=== PATIENT | male | born 1935 | race Two or more races ===

== ENCOUNTER 2017-11-07 14:18 | Emergency (ER) | payer MEDICAID ==
[~2017-11-07] VITALS: Ht 157.5 cm; Wt 71.7 kg
[~2017-11-07 14:18] MED LIST: AMLO5TAB2 PO; LISI-646 PO; TRAM50TA2 PO
[2017-11-07 15:25] LABS: Basophils # (auto) 0.1 uL; Basophils % (auto) 0.7 % (0.0-2.0); Eosinophils # (auto) 0.1 uL; Hematocrit 40.1 % (41.0-53.0); Hemoglobin 13.8 g/dL (13.5-17.5); Lymphocytes # (auto) 1.5 uL; Lymphocytes % (auto) 18.6 % (10.0-50.0); Mean Corpuscular Hemoglobin 31.1 pg (28.0-32.0); Mean Corpuscular Hgb Conc. 34.4 g/dL (32.0-36.0); Mean Corpuscular Volume 90.2 fL (80.0-100.0); Monocytes % (auto) 12.5 % (0.0-12.0); Neutrophils # (auto) 5.5 uL; Neutrophils % (auto) 67.2 % (37.0-80.0); Nucleated Red Blood Cells % 0.1 %; Platelet Count (auto) 183 10^3/uL (140-450); Red Blood Cells 4.44 10^6/uL (4.5-5.90); Red Cell Distribution Width 14.1 % (11.8-14.3); White Blood Cell 8.2 10^3/uL (4.4-10.8)
[2017-11-07 15:48] LABS: Alanine Aminotransferase 31 U/L (16-61); Alkaline Phosphatase 63 U/L (45-117); Anion Gap 9 (5-15); Aspartate Aminotransferase 24 U/L (15-37); BUN/Creatinine Ratio 16.9; Bilirubin, Total 2.1 mg/dL (0.2-1.0); Blood Urea Nitrogen 15 mg/dL (7-18); Calcium 7.7 mg/dL (8.5-10.1); Carbon Dioxide 23 mmol/L (21-32); Chloride 105 mmol/L (98-107); GFR African American 105 mL/min; GFR Non-African American 87 mL/min; Glucose 101 mg/dL (74-106); Potassium 4.2 mmol/L (3.5-5.1); Sodium 137 mmol/L (136-145)
[2017-11-07 16:28] LABS: Urine Bacteria FEW /hpf (None Seen); Urine Blood 2+ /uL (Negative); Urine Specific Gravity 1.012 (1.001-1.035); Urine WBC 97 /hpf (0 - 3); Urine WBC Clumps PRESENT /hpf (None Seen)
[2017-11-07 17:02] VITALS: BP 113/54
[2017-11-07] MEDS ORDERED: cefTRIAXone SOD 1,000 MG VL IM ONE (18:00)
[2017-11-07] MEDS ORDERED: cefTRIAXone 1GM/10ml IVPUSH 10 ML IV ONE (18:21)
== END 2017-11-07 18:49 | disposition home or self-care (01) ==
LOC: ER 14:18
DX: N39.0 Urinary tract infection, site not specified (principal); N45.1 Epididymitis; I10 Essential (primary) hypertension; Z90.49 Acquired absence of other specified parts of digestive tract
CPT/HCPCS: 36415; 71045; 74176; 76870; 80053; 81001; 84484; 85025; 93005; 96372; 99285; J0696

== ENCOUNTER 2020-02-19 18:00 | Inpatient (IN) | payer MEDICAID ==
[~2020-02-19] VITALS: Ht 165.1 cm; Wt 64.0 kg
[~2020-02-19 18:00] MED LIST changes: +AMLO5TAB15 PO; -AMLO5TAB2 PO
[2020-02-19 19:19] LABS: Basophils # (auto) 0 10 ^3/uL (0-0.2); Basophils % (auto) 0.2 % (0.0-2.0); Eosinophils # (auto) 0 10 ^3/uL (0-0.8); Hematocrit 40.3 % (41.0-53.0); Hemoglobin 13.7 g/dL (13.5-17.5); Lymphocytes # (auto) 1.3 10 ^3/uL (0.4-5.4); Lymphocytes % (auto) 26.2 % (10.0-50.0); Mean Corpuscular Volume 88.3 fL (80.0-100.0); Monocytes # (auto) 0.5 10 ^3/uL (0-1.3); Neutrophils # (auto) 3.1 10 ^3/uL (1.6-8.6); Neutrophils % (auto) 62.6 % (37.0-80.0); Nucleated Red Blood Cells % 0.2 %; Platelet Count (auto) 154 10^3/uL (140-450); Red Blood Cells 4.56 10^6/uL (4.5-5.90); Red Cell Distribution Width 14.1 % (11.8-14.3)
[2020-02-19 19:26] LABS: INR 1.05 (0.9-1.15); Partial Thromboplastin Time 31.7 sec (23.0-31.2)
[2020-02-19 19:37] LABS: Potassium 3.6 mmol/L (3.5-5.1)
[2020-02-19 19:46] LABS: Albumin 2.9 g/dL (3.4-5.0); BUN/Creatinine Ratio 14.8; Bilirubin, Total 1.1 mg/dL (0.2-1.0); Calcium 7.8 mg/dL (8.5-10.1); Total Protein 6.9 g/dL (6.4-8.2)
[2020-02-20] VITALS (7 sets, daily range): BP systolic 127–162; BP diastolic 67–74
[2020-02-20] MEDS ORDERED: ONDANSETRON HCL 4 MG/2 ML VIAL IV PRN (02:00)
[2020-02-20] MEDS ORDERED: DOCUSATE SOD 100 MG CAP PO PRN (02:00)
[2020-02-20] MEDS ORDERED: NITROGLYCERIN 0.4 MG SL TAB SL PRN (02:00)
[2020-02-20] MEDS ORDERED: ACETAMINOPHEN 500 MG TAB PO PRN (02:00)
[2020-02-20] MEDS ORDERED: MORPHINE SULF INJ 2 MG/ML SYRINGE 1ML IV PRN (02:00)
[2020-02-20] MEDS ORDERED: DexAMETHasone SOD PHOS 10MG/1ML VIAL INJ IV SCH (03:00)
[2020-02-20] MEDS ORDERED: DOXYCYCLINE 100MG/250ML 250 ML IV SCH (03:00)
--- NOTE | 2020-02-20 03:52 | NUR ---
Telemetry admit from ER [facility] CHACON admitted to Telemetry unit after SBAR received. Patient oriented to ULICES PACHECO RN primary RN, unit, room, bed, and unit policies regarding patient care and visiting hours. Patient now on continuous telemetry monitoring, tele box #19 and telemetry reading on arrival to unit is SR 80bpm. Patient weighed by bedscale and encouraged to call if they need something. All questions and concerns addressed, patient verbalized understanding.
--- NOTE | 2020-02-20 04:28 | NUR ---
unable to obtain home medication list per patient he will provide medication list later on during the day. will endorse care to dayshift rn
[2020-02-20] MEDS ORDERED: INFLUENZA QUAD 2020-2021 0.5 ML SYRG IM ONE (05:00)
[2020-02-20] MEDS: ALBUTEROL SULF HFA 90MCG INH 200DOSE IN SCH ×2 (06:00→14:07)
[2020-02-20] MEDS ORDERED: SODIUM CHLOR 0.9% PF (SALINE LOCK) 10ML VIAL/SYR IV SCH (06:00)
--- NOTE | 2020-02-20 06:50 | NUR ---
Patient rounds patient resting in bed denies sob distress or pain. iv is intact and patent. bed in low position and call light within reach
--- NOTE | 2020-02-20 07:26 | NUR ---
REPORT GIVEN TO DAYSHIFT RN PATIENT DENIES SOB DISTRESS OR PAIN
[2020-02-20] MEDS ORDERED: PANTOPRAZOLE 40 MG/10 ML VIAL INJ IV SCH (10:00)
[2020-02-20] MEDS ORDERED: ASCORBIC ACID 1,000 MG TAB PO SCH (10:00)
[2020-02-20] MEDS ORDERED: MULTIPLE VITAMIN TAB PO SCH (10:00)
[2020-02-20] MEDS ORDERED: ENOXAPARIN SOD 40 MG/0.4 ML SYRINGE SC SCH (10:00)
[2020-02-20] MEDS ORDERED: BUDESONIDE (INHALATION) 180 MCG IH IN SCH (10:00)
[2020-02-20] MEDS ORDERED: ZINC SULFATE 220mg CAP or TAB PO SCH (10:00)
[2020-02-20] MEDS ORDERED: CHOLECALCIFEROL (VITD3) 2,000 UNIT CAP PO SCH (10:00)
--- NOTE | 2020-02-20 11:29 | NUR ---
Nutrition Assessment/Consult Notes Please refer to link for full assessment notes. Est Energy needs: 3406-3914 kcals (20-23 kcal/kgBW) Est Protein needs: 64-70 gms/day (1.0-1.1 gm/kgBW) Will continue to monitor and reassess prn. Addendum: 02/20/20 at [address] Amended: Links added.
[2020-02-20 11:40] LABS: Basophils # (auto) 0 10 ^3/uL (0-0.2); Basophils % (auto) 0.1 % (0.0-2.0); Eosinophils # (auto) 0 10 ^3/uL (0-0.8); Hematocrit 43.3 % (41.0-53.0); Hemoglobin 14.6 g/dL (13.5-17.5); Lymphocytes # (auto) 0.7 10 ^3/uL (0.4-5.4); Lymphocytes % (auto) 21.3 % (10.0-50.0); Mean Corpuscular Hemoglobin 29.8 pg (28.0-32.0); Mean Corpuscular Hgb Conc. 33.6 g/dL (32.0-36.0); Mean Corpuscular Volume 88.8 fL (80.0-100.0); Monocytes # (auto) 0.1 10 ^3/uL (0-1.3); Monocytes % (auto) 3.9 % (0.0-12.0); Neutrophils # (auto) 2.5 10 ^3/uL (1.6-8.6); Neutrophils % (auto) 74.7 % (37.0-80.0); Platelet Count (auto) 159 10^3/uL (140-450); Red Blood Cells 4.88 10^6/uL (4.5-5.90); Red Cell Distribution Width 14.1 % (11.8-14.3); White Blood Cell 3.4 10^3/uL (4.4-10.8)
--- NOTE | 2020-02-20 11:45 | NUR ---
Dr Chanel bedside with patient discussing plan of care
[2020-02-20 12:04] LABS: BUN/Creatinine Ratio 15.4; Calcium 8.3 mg/dL (8.5-10.1)
[2020-02-20] MEDS ORDERED: ASCO10003 PO (12:26)
[2020-02-20] MEDS ORDERED: DOXY-286 PO (12:26)
--- NOTE | 2020-02-20 13:03 | NUR ---
Dr Bain bedside with patient.
--- NOTE | 2020-02-20 15:15 | NUR ---
Discharge instructions given as ordered. Encourage to follow up with PMD as instructed. Patient to call PCP and schedule appointment as office was closed due to weekend. Phone # and address provided. All questions and concerns addressed. Patient verbalized understanding. Medication reconciliation form completed and copy given to patient. No home medications being held in Pharmacy, and no needed vaccines given, patient declined. IV removed with catheter intact and pressure dressing applied. Telemetry unit returned to ICU. Patient taken to vehicle via wheelchair with all personal belongings, accompanied by staff and family member. No distress noted at time of departure.
--- NOTE | 2020-02-23 10:27 | NUR ---
THIRD MATE WEEKEND 02/20/20 No page regarding social service for advance directive.
== END 2020-02-20 15:15 | disposition home or self-care (01) | DRG 137 ==
LOC: EDBD 18:00 → ER 18:00 → TELE 18:01 → TELE-EAST 02-20 04:19
PROVIDERS: ADMIT Nurse Practitioner Family; ATTEND Nurse Practitioner Acute Care
DX: U07.1 COVID-19 (principal); I10 Essential (primary) hypertension; J12.89 Other viral pneumonia; K21.9 Gastro-esophageal reflux disease without esophagitis; J98.11 Atelectasis
CPT/HCPCS: 36415; 71045; 80048; 80053; 82150; 83605; 83690; 83735; 84484; 85025; 85379; 85610; 85730; 87426; 93005; 94640; C9113; G0378; J1100; J3490

== ENCOUNTER 2022-02-24 13:09 | Inpatient (IN) | payer MEDICAID ==
[~2022-02-24] VITALS: Ht 167.6 cm; Wt 63.5 kg
[~2022-02-24 13:09] MED LIST changes: +AMLO-489 PO; -AMLO5TAB15 PO; +ASCO10003 PO; +DOXY-286 PO; -LISI-646 PO; +LISI20TA28 PO
[2022-02-24 15:07] LABS: Basophils # (auto) 0 10 ^3/uL (0-0.2); Basophils % (auto) 0.2 % (0.0-2.0); Eosinophils # (auto) 0 10 ^3/uL (0-0.8); Eosinophils % (auto) 0.2 % (0.0-7.0); Hematocrit 42.5 % (41.0-53.0); Hemoglobin 14.1 g/dL (13.5-17.5); Lymphocytes # (auto) 1.1 10 ^3/uL (0.4-5.4); Mean Corpuscular Hemoglobin 30.2 pg (28.0-32.0); Mean Corpuscular Hgb Conc. 33.1 g/dL (32.0-36.0); Mean Corpuscular Volume 91.4 fL (80.0-100.0); Neutrophils # (auto) 8.4 10 ^3/uL (1.6-8.6); Neutrophils % (auto) 79.6 % (37.0-80.0); Red Blood Cells 4.65 10^6/uL (4.5-5.90); Red Cell Distribution Width 14.4 % (11.8-14.3); White Blood Cell 10.5 10^3/uL (4.4-10.8)
[2022-02-24 15:55] LABS: Albumin 3.3 g/dL (3.4-5.0); BUN/Creatinine Ratio 17.7; Bilirubin, Total 1.5 mg/dL (0.2-1.0); Calcium 8.4 mg/dL (8.5-10.1); Potassium 4.9 mmol/L (3.5-5.1); Total Protein 6.7 g/dL (6.4-8.2)
[2022-02-24] MEDS ORDERED: SODIUM CHLORIDE 0.9% 1,000 ML IV SCH (19:15)
[2022-02-24] MEDS ORDERED: ACETAMINOPHEN 325 MG TAB PO PRN (19:15)
[2022-02-24] MEDS ORDERED: ASPirin 325 MG TAB PO ONE (19:15)
[2022-02-24] MEDS ORDERED: ENOXAPARIN SOD 100 MG/1 ML SYRINGE SC ONE (19:30)
[2022-02-24 21:07] LABS: Cholesterol 162 mg/dL (< 200); HDL Cholesterol 41 mg/dL (40-59); LDL Cholesterol 109 mg/dL (< 100); Triglycerides 169 mg/dL (< 150)
[2022-02-24 21:35] LABS: Urine Bacteria FEW /hpf (None Seen); Urine Blood Negative /uL (Negative); Urine Specific Gravity 1.016 (1.001-1.035); Urine WBC 1 /hpf (0 - 3)
[2022-02-24 22:08] VITALS: BP 128/55
[2022-02-24] MEDS: ATORVASTATIN 20 MG TAB PO SCH (22:11)
[2022-02-24] MEDS ORDERED: LOSA-39 PO (22:25)
[2022-02-24 22:37] VITALS: BP 128/55
[2022-02-25] VITALS (10 sets, daily range): BP systolic 90–135; BP diastolic 38–94
[2022-02-25 06:36] LABS: Basophils # (auto) 0 10 ^3/uL (0-0.2); Basophils % (auto) 0.1 % (0.0-2.0); Eosinophils # (auto) 0 10 ^3/uL (0-0.8); Hematocrit 43.1 % (41.0-53.0); Hemoglobin 14.6 g/dL (13.5-17.5); Lymphocytes # (auto) 1.4 10 ^3/uL (0.4-5.4); Lymphocytes % (auto) 9.7 % (10.0-50.0); Mean Corpuscular Hemoglobin 30.6 pg (28.0-32.0); Mean Corpuscular Hgb Conc. 33.8 g/dL (32.0-36.0); Mean Corpuscular Volume 90.5 fL (80.0-100.0); Monocytes # (auto) 1.3 10 ^3/uL (0-1.3); Monocytes % (auto) 8.8 % (0.0-12.0); Neutrophils # (auto) 11.9 10 ^3/uL (1.6-8.6); Neutrophils % (auto) 81.4 % (37.0-80.0); Red Blood Cells 4.77 10^6/uL (4.5-5.90); Red Cell Distribution Width 13.7 % (11.8-14.3); White Blood Cell 14.6 10^3/uL (4.4-10.8)
[2022-02-25 07:09] LABS: Albumin 3.1 g/dL (3.4-5.0); BUN/Creatinine Ratio 15.7; Bilirubin, Total 3.5 mg/dL (0.2-1.0); Calcium 8.4 mg/dL (8.5-10.1); Potassium 4.6 mmol/L (3.5-5.1); Total Protein 6.4 g/dL (6.4-8.2)
[2022-02-25] MEDS ORDERED: cefTRIAXone 1GM/50ML D5W 50 ML IV ONE (09:15)
[2022-02-25] MEDS ORDERED: ENOXAPARIN SOD 40 MG/0.4 ML SYRINGE SC SCH (10:00)
[2022-02-25] MEDS ORDERED: ENOXAPARIN SOD 100 MG/1 ML SYRINGE SC SCH (10:00)
[2022-02-25] MEDS ORDERED: HEPARIN SODIUM (PORCINE) 5000 UNITS/ML 1ML VIAL ONE (10:23)
[2022-02-25] MEDS ORDERED: ANGIOMAX 250 MG VIAL IV ONE ×2 (10:23→11:54)
[2022-02-25] MEDS ORDERED: fentaNYL CITRATE 100 MCG/2 ML VL ONE (10:24)
[2022-02-25] MEDS ORDERED: VERAPAMIL 2.5MG/ML INJ 2ML VIAL IV ONE (10:24)
[2022-02-25] MEDS ORDERED: MIDAZOLAM HCL 2MG/2ML 2ml VIAL (1mg/ml) ONE ×2 (10:24→12:36)
[2022-02-25] MEDS ORDERED: LIDOCAINE 2%HCL (LOCAL ANESTH.) INJ 20ML MDV ONE (10:24)
[2022-02-25] MEDS ORDERED: SODIUM CHL 0.9% 50 ML ONE ×2 (10:24→11:54)
[2022-02-25] MEDS ORDERED: IOHEXOL 350 MG/ML 100ML IJ ONE ×4 (11:06→12:45)
[2022-02-25] MEDS ORDERED: ATROPINE SULF 1 MG/10ml SYR ONE (12:59)
[2022-02-25] MEDS ORDERED: EPINEPHrine HCL 1 MG/10 ML SYRG ONE (12:59)
[2022-02-25] MEDS ORDERED: IODIXANOL 320MG/ML 100ML BTL IV ONE (13:17)
[2022-02-25] MEDS ORDERED: TICAGRELOR 90 MG TAB ONE (13:59)
[2022-02-25] MEDS: SODIUM CHLORIDE 0.9% 1,000 ML IV SCH ×3 (14:10→22:35)
[2022-02-25 16:07] LABS: Lactic Acid w/Reflex 2.1 mmol/L (0.4-2.0)
[2022-02-25 17:10] LABS: INR 6.47 (0.9-1.15)
[2022-02-25 17:11] LABS: Partial Thromboplastin Time 119.1 sec (24.6-33.4)
[2022-02-25] MEDS: ASPirin 81 mg TAB PO SCH (17:35)
[2022-02-25 21:03] LABS: INR 1.12 (0.9-1.15)
[2022-02-25] MEDS: ATORVASTATIN 20 MG TAB PO SCH (21:31)
[2022-02-26] MEDS: SODIUM CHLORIDE 0.9% 1,000 ML IV SCH (01:44)
[2022-02-26 05:00] VITALS: BP 128/61
[2022-02-26 05:47] LABS: Basophils # (auto) 0 10 ^3/uL (0-0.2); Basophils % (auto) 0.1 % (0.0-2.0); Eosinophils # (auto) 0 10 ^3/uL (0-0.8); Eosinophils % (auto) 0.1 % (0.0-7.0); Hematocrit 40.7 % (41.0-53.0); Lymphocytes # (auto) 1.2 10 ^3/uL (0.4-5.4); Lymphocytes % (auto) 12.2 % (10.0-50.0); Mean Corpuscular Hemoglobin 31.1 pg (28.0-32.0); Mean Corpuscular Hgb Conc. 34.4 g/dL (32.0-36.0); Mean Corpuscular Volume 90.3 fL (80.0-100.0); Monocytes # (auto) 1.2 10 ^3/uL (0-1.3); Monocytes % (auto) 12.4 % (0.0-12.0); Neutrophils # (auto) 7.2 10 ^3/uL (1.6-8.6); Neutrophils % (auto) 75.2 % (37.0-80.0); Red Blood Cells 4.51 10^6/uL (4.5-5.90); Red Cell Distribution Width 13.8 % (11.8-14.3); White Blood Cell 9.6 10^3/uL (4.4-10.8)
[2022-02-26 06:07] LABS: INR 1.03 (0.9-1.15); Partial Thromboplastin Time 33.1 sec (24.6-33.4)
[2022-02-26 06:29] LABS: BUN/Creatinine Ratio 20.8; Potassium 3.8 mmol/L (3.5-5.1)
[2022-02-26 09:00] VITALS: BP 127/64
[2022-02-26] MEDS: cefTRIAXone 1GM/50ML D5W 50 ML IV SCH (09:08)
[2022-02-26] MEDS: ASPirin 81 mg TAB PO SCH (09:08)
[2022-02-26] MEDS: ENOXAPARIN SOD 40 MG/0.4 ML SYRINGE SC SCH (09:08)
[2022-02-26] MEDS ORDERED: ENOXAPARIN SOD 40 MG/0.4 ML SYRINGE SC SCH (10:00)
[2022-02-26] MEDS ORDERED: CLOPIDOGREL BISULFATE 75 MG TAB PO ONE (10:15)
[2022-02-26] MEDS ORDERED: METOPROLOL SUCCINATE XL 50 MG TAB PO ONE (11:15)
[2022-02-26 13:00] VITALS: BP 107/68
[2022-02-26 17:10] VITALS: BP 97/64
[2022-02-26 20:00] VITALS: BP 132/72
[2022-02-26 22:00] VITALS: BP 132/72
[2022-02-26] MEDS: ATORVASTATIN 20 MG TAB PO SCH (22:11)
[2022-02-27] VITALS (10 sets, daily range): BP systolic 135–147; BP diastolic 64–81
[2022-02-27] MEDS: SODIUM CHLORIDE 0.9% 1,000 ML IV SCH ×2 (01:15→04:55)
[2022-02-27 06:51] LABS: Basophils # (auto) 0 10 ^3/uL (0-0.2); Basophils % (auto) 0.1 % (0.0-2.0); Eosinophils # (auto) 0.1 10 ^3/uL (0-0.8); Eosinophils % (auto) 0.8 % (0.0-7.0); Hematocrit 40.4 % (41.0-53.0); Hemoglobin 13.7 g/dL (13.5-17.5); Lymphocytes # (auto) 1.3 10 ^3/uL (0.4-5.4); Lymphocytes % (auto) 17.5 % (10.0-50.0); Mean Corpuscular Hemoglobin 30.5 pg (28.0-32.0); Mean Corpuscular Hgb Conc. 33.8 g/dL (32.0-36.0); Mean Corpuscular Volume 90.1 fL (80.0-100.0); Monocytes # (auto) 0.9 10 ^3/uL (0-1.3); Monocytes % (auto) 12.4 % (0.0-12.0); Neutrophils % (auto) 69.2 % (37.0-80.0); Red Blood Cells 4.49 10^6/uL (4.5-5.90); Red Cell Distribution Width 13.7 % (11.8-14.3); White Blood Cell 7.2 10^3/uL (4.4-10.8)
[2022-02-27 07:09] LABS: BUN/Creatinine Ratio 22.4; Calcium 7.9 mg/dL (8.5-10.1)
[2022-02-27 08:30] LABS: INR 0.99 (0.9-1.15); Partial Thromboplastin Time 32.3 sec (24.6-33.4)
[2022-02-27] MEDS ORDERED: ANGIOMAX 250 MG VIAL IV ONE (09:04)
[2022-02-27] MEDS ORDERED: VERAPAMIL 2.5MG/ML INJ 2ML VIAL IV ONE (09:05)
[2022-02-27] MEDS ORDERED: MIDAZOLAM HCL 2MG/2ML 2ml VIAL (1mg/ml) ONE (09:05)
[2022-02-27] MEDS ORDERED: HEPARIN SODIUM (PORCINE) 5000 UNITS/ML 1ML VIAL ONE (09:05)
[2022-02-27] MEDS ORDERED: fentaNYL CITRATE 100 MCG/2 ML VL ONE (09:05)
[2022-02-27] MEDS ORDERED: SODIUM CHL 0.9% 50 ML ONE (09:06)
[2022-02-27] MEDS ORDERED: IODIXANOL 320MG/ML 100ML BTL IV ONE (09:48)
[2022-02-27] MEDS: ASPirin 81 mg TAB PO SCH (10:00)
[2022-02-27] MEDS: CLOPIDOGREL BISULFATE 75 MG TAB PO SCH (10:00)
[2022-02-27] MEDS ORDERED: CLOPIDOGREL BISULFATE 75 MG TAB ONE (10:26)
[2022-02-27] MEDS ORDERED: ASPirin 81 mg TAB ONE (10:27)
[2022-02-27] MEDS: METOPROLOL SUCCINATE XL 50 MG TAB PO SCH (13:09)
[2022-02-27] MEDS: cefTRIAXone 1GM/50ML D5W 50 ML IV SCH (13:09)
[2022-02-27] MEDS: ENOXAPARIN SOD 40 MG/0.4 ML SYRINGE SC SCH (13:10)
[2022-02-27] MEDS: ATORVASTATIN 20 MG TAB PO SCH (22:56)
[2022-02-28 05:00] VITALS: BP 150/72
[2022-02-28 08:30] VITALS: BP 144/73
[2022-02-28] MEDS: ASPirin 81 mg TAB PO SCH (09:07)
[2022-02-28] MEDS: cefTRIAXone 1GM/50ML D5W 50 ML IV SCH (09:07)
[2022-02-28] MEDS: ENOXAPARIN SOD 40 MG/0.4 ML SYRINGE SC SCH (09:07)
[2022-02-28] MEDS: CLOPIDOGREL BISULFATE 75 MG TAB PO SCH (09:08)
[2022-02-28] MEDS: METOPROLOL SUCCINATE XL 50 MG TAB PO SCH (09:10)
[2022-02-28] MEDS: SODIUM CHLORIDE 0.9% 1,000 ML IV SCH ×2 (09:24→20:14)
[2022-02-28] MEDS: NITROGLYCERIN 0.4 MG SL TAB SL PRN ×3 (09:50→10:10)
[2022-02-28] MEDS: MORPHINE SULFATE INJ 2 MG/ml SYRG IV PRN ×2 (10:02→10:40)
[2022-02-28 12:30] VITALS: BP 103/41
[2022-02-28 16:30] VITALS: BP 120/57
[2022-02-28 22:00] VITALS: BP 128/64
[2022-02-28] MEDS: ATORVASTATIN 20 MG TAB PO SCH (22:00)
[2022-03-01 05:00] VITALS: BP 132/60
[2022-03-01] MEDS: SODIUM CHLORIDE 0.9% 1,000 ML IV SCH (06:46)
[2022-03-01] MEDS: cefTRIAXone 1GM/50ML D5W 50 ML IV SCH (08:31)
[2022-03-01] MEDS: METOPROLOL SUCCINATE XL 50 MG TAB PO SCH (08:32)
[2022-03-01] MEDS: ASPirin 81 mg TAB PO SCH (08:32)
[2022-03-01] MEDS: CLOPIDOGREL BISULFATE 75 MG TAB PO SCH (08:32)
[2022-03-01] MEDS: ENOXAPARIN SOD 40 MG/0.4 ML SYRINGE SC SCH (08:36)
[2022-03-01 09:00] VITALS: BP 121/67
[2022-03-01] MEDS ORDERED: CLOP75TA70 PO (11:29)
[2022-03-01] MEDS ORDERED: NITR0.4S29 SL (11:29)
[2022-03-01] MEDS ORDERED: ASPI-325 PO (11:29)
[2022-03-01] MEDS ORDERED: ATO40T PO (11:29)
[2022-03-01] MEDS ORDERED: METO25TA36 PO (11:29)
[2022-03-01 11:51] VITALS: BP 121/67
== END 2022-03-01 13:33 | disposition home or self-care (01) | DRG 174 ==
LOC: ER 13:12 → TELE 19:14 → TELE-EAST 21:22
PROVIDERS: ADMIT Nurse Practitioner Family; ATTEND Internal Medicine
PROC: 4A023N7 Measurement of Cardiac Sampling and Pressure, Left Heart, Percutaneous Approach (ICD-10-PCS; principal; 2022-02-25)
PROC: 027237Z Dilation of Coronary Artery, Three Arteries with Four or More Drug-eluting Intraluminal Devices, Percutaneous Approach (ICD-10-PCS; 2022-02-25)
PROC: B211YZZ Fluoroscopy of Multiple Coronary Arteries using Other Contrast (ICD-10-PCS; 2022-02-25)
PROC: B215YZZ Fluoroscopy of Left Heart using Other Contrast (ICD-10-PCS; 2022-02-25)
PROC: 4A033BC Measurement of Arterial Pressure, Coronary, Percutaneous Approach (ICD-10-PCS; 2022-02-25)
PROC: B241ZZ3 Ultrasonography of Multiple Coronary Arteries, Intravascular (ICD-10-PCS; 2022-02-25)
PROC: 027034Z Dilation of Coronary Artery, One Artery with Drug-eluting Intraluminal Device, Percutaneous Approach (ICD-10-PCS; 2022-02-27)
PROC: B240ZZ3 Ultrasonography of Single Coronary Artery, Intravascular (ICD-10-PCS; 2022-02-27)
DX: I21.4 Non-ST elevation (NSTEMI) myocardial infarction (principal); N17.9 Acute kidney failure, unspecified; E46 Unspecified protein-calorie malnutrition; E83.51 Hypocalcemia; I10 Essential (primary) hypertension; Z20.822 Contact with and (suspected) exposure to COVID-19; E78.5 Hyperlipidemia, unspecified; I25.10 Atherosclerotic heart disease of native coronary artery without angina pectoris; Z68.23 Body mass index [BMI] 23.0-23.9, adult; F17.200 Nicotine dependence, unspecified, uncomplicated; Z85.46 Personal history of malignant neoplasm of prostate; Z86.73 Personal history of transient ischemic attack (TIA), and cerebral infarction without residual deficits; Z91.14 Patient's other noncompliance with medication regimen; Z90.49 Acquired absence of other specified parts of digestive tract
CPT/HCPCS: 36415; 70450; 71045; 80048; 80053; 80061; 81001; 83036; 83605; 83880; 84443; 84484; 85025; 85379; 85610; 85730; 86850; 86900; 86901; 87040; 87426; 87493; 87804; 92928; 92929; 92978; 93005; 93306; 93458; 93571; 93886; 96360; 96372; 99152; 99153; C1874; G0378; J0696; J2250; Q9967

== ENCOUNTER 2022-03-02 09:10 | Emergency (ER) | payer MEDICAID ==
[~2022-03-02] VITALS: Ht 167.6 cm; Wt 81.8 kg
[~2022-03-02 09:10] MED LIST changes: -AMLO-489 PO; -ASCO10003 PO; +ASPI-325 PO; +ATO40T PO; +CLOP75TA70 PO; -DOXY-286 PO; -LISI20TA28 PO; +LOSA-39 PO; +METO25TA36 PO; +NITR0.4S29 SL; -TRAM50TA2 PO
[2022-03-02] MEDS ORDERED: EPINEPHrine HCL 1 MG/10 ML SYRG IV ONE (09:11)
[2022-03-02] MEDS ORDERED: SODIUM BICARBONATE 8.4 % INJ 50ML VIAL IV ONE (09:11)
[2022-03-02 09:34] VITALS: BP 0/0
== END 2022-03-02 12:16 ==
LOC: ER 09:10
DX: I46.9 Cardiac arrest, cause unspecified (principal); I11.0 Hypertensive heart disease with heart failure; I50.9 Heart failure, unspecified; E78.5 Hyperlipidemia, unspecified; K21.9 Gastro-esophageal reflux disease without esophagitis; Z86.73 Personal history of transient ischemic attack (TIA), and cerebral infarction without residual deficits; Z90.49 Acquired absence of other specified parts of digestive tract; Z79.82 Long term (current) use of aspirin; Z79.01 Long term (current) use of anticoagulants; Z79.899 Other long term (current) drug therapy
CPT/HCPCS: 31500; 92950; 99285; J0171